=== PATIENT | female | born 1975 | race Caucasian/White ===

== ENCOUNTER 2021-06-07 19:28 | Emergency (ER) | payer SELFPAY ==
[~2021-06-07] VITALS: Ht 167.6 cm; Wt 63.9 kg
[2021-06-07 19:42] VITALS: BP 158/90
[2021-06-07] MEDS ORDERED: ACETAMINOPHEN 500 MG TABLET PO ONE (19:45)
--- NOTE | 2021-06-07 19:52 | PHYS DOC ---
Adult General Chief Complaint Chief Complaint: LOWEREXTREMITY INJURY HPI HPI Patient is a 45-year-old female who presents with right ankle pain after twisting it, 7 out of 10, dull and achy in nature with no radiation. Denies any other injuries. Review of Systems Review of Systems Review of systems otherwise unremarkable except noted in HPI Physical Exam Physical Exam Constitutional: Well developed, well nourished, no acute distress, non-toxic appearance. [] Skin: Warm, dry, no erythema, no rash. [] Back: No tenderness, Extremities: Mild generalized tenderness and swelling around the ankle, with some bruising and swelling around medial malleolus, , neurovascular exam intact Neurologic: Alert and oriented X 3, normal motor function, normal sensory function, no focal deficits noted. [] Psychologic: Affect normal, judgement normal, mood normal. [] EKG EKG [] Radiology/Procedures Radiology/Procedures [] EXAM: 3 views right ankle 2 views right tibia/fibula DATE: 06/07/2021 7:44 PM INDICATION: Reason: fall / Spl. Instructions: / History: . COMPARISON: No Prior FINDINGS: There is a comminuted fracture of the calcaneus with comminution of the posterior body with extension into the posterior tuberosity of the Achilles attachment with suspected extension to the posterior subtalar joint with flattening of the calcaneus. IMPRESSION: Comminuted right calcaneal fracture with suspected posterior subtalar joint extension. Fracture planes can be better assessed by dedicated CT if clinically indicated. Electronically signed by: Cristo Lerner MD (06/07/2021 8:20 PM) [facility] Heart Score C/O Chest Pain: No Risk Factors: Risk Factors: DM, Current or recent (<one month) smoker, HTN, HLP, family history of CAD, obesity. Risk Scores: Risk Factors: DM, Current or recent (<one month) smoker, HTN, HLP, family history of CAD, obesity. Course & Med Decision Making Course & Med Decision Making Patient is a 45-year-old female that presents with right ankle pain Vital signs not concerning. Physical exam noted above. Given pain medicine. Given ice pack. Given Tylenol, ibuprofen and ice. Imaging notable for calcaneal fracture. Placed patient in a short leg splint with stirrup. Given crutches. Discussed pain management at home. Advised to call [facility] orthopedist in the morning to discuss need for follow-up. Gave return precautions to the ED. Patient grateful, verbalized understanding and agreed with plan of discharge. [] Priscila Disclaimer Priscila Disclaimer This electronic medical record was generated, in whole or in part, using a voice recognition dictation system. Departure Departure: Impression: Primary Impression: Ankle sprain Additional Impression: Calcaneal fracture Disposition: HOME / SELF CARE / HOMELESS Condition: GOOD Referrals: PCP,NO (PCP) ZORAIDA CERVANTES Patient Instructions: Calcaneal Fracture, RICE - Routine Care for Injuries Additional Instructions: Thank you for coming into the emergency department tonight and allowing us to take care of you. Please read the attached information carefully to go back over some of the things we discussed. Please begin a Tylenol, ibuprofen and ice regimen as tolerated and discussed. Please call your primary care physician in the morning to update on your ED visit. Please take your pain medicine as prescribed and as needed. Please use your crutches at all times and do not bear any weight on this fracture. Please come back with new or concerning symptoms as we discussed. It is very important that you call [facility] first thing in the morning at [phone] to discuss your broken heel and set up an appointment as soon as possible for reevaluation and further evaluation and treatment. Scripts Hydrocodone Bit/Acetaminophen (HYDROCODONE-APAP 5-325 ) 1 Each Tablet 1 TAB PO Q4HRS PRN for heel fracture for 5 Days, #30 TAB 0 Refills Prov: SATINDER VARGAS MD 06/07/21 Problem Qualifiers SATINDER VARGAS MD Jun 07, 2021 19:52
--- NOTE | 2021-06-07 20:22 | RAD ---
EXAM: 3 views right ankle 2 views right tibia/fibula DATE: 06/07/2021 7:44 PM INDICATION: Reason: fall / Spl. Instructions: / History: . COMPARISON: No Prior FINDINGS: There is a comminuted fracture of the calcaneus with comminution of the posterior body with extension into the posterior tuberosity of the Achilles attachment with suspected extension to the posterior s ubtalar joint with flattening of the calcaneus. IMPRESSION: Comminuted right calcaneal fracture with suspected posterior subtalar joint extension. Fracture plane s can be better assessed by dedicated CT if clinically indicated. Electronically signed by: Cristo Lerner MD (06/07/2021 8:20 PM) MAX
[2021-06-07] MEDS ORDERED: IBUPROFEN 800 MG TABLET. PO ONE (20:48)
[2021-06-07] MEDS ORDERED: MORPHINE SULFATE 4 MG/ML DISP.SYRIN. ONE (20:49)
[2021-06-07] MEDS ORDERED: HYDR-2155 PO (20:50)
[2021-06-07] MEDS ORDERED: IBUPROFEN 600 MG TABLET. PO ONE (21:00)
[2021-06-07] MEDS ORDERED: MORPHINE SULFATE 4 MG/ML DISP.SYRIN. IM ONE (21:00)
[2021-06-07] MEDS ORDERED: oxyCODONE/APAP 5/325 1 TAB TABLET PO ONE (21:00)
== END 2021-06-07 21:54 | disposition home or self-care (01) ==
LOC: ER 19:28
DX: S92.001A Unspecified fracture of right calcaneus, initial encounter for closed fracture (principal); S93.401A Sprain of unspecified ligament of right ankle, initial encounter; X50.1XXA Overexertion from prolonged static or awkward postures, initial encounter; Y93.89 Activity, other specified; Y92.89 Other specified places as the place of occurrence of the external cause; Y99.8 Other external cause status
CPT/HCPCS: 29515; 73590; 73610; 99284; J2270

== ENCOUNTER → 2021-06-29 | Outpatient (CLI) | payer SELFPAY ==
[2021-06-07 19:42] VITALS: BP 158/90
[~2021-06-29] MED LIST: HYDR-2155 PO
--- NOTE | 2021-06-30 10:18 | RAD ---
Examination: 3 views of the right foot HISTORY: Calcaneal fracture COMPARISON: 06/07/2021 Findings/ impression: Cast screws identified fine bony detail. Screws identified transfixing the calcaneal fracture. The al ignment of the tarsometatarsal joints, tarsophalangeal joints, interphalangeal joints grossly appears unremarkable. Electronically signed by: Den Hernandez MD (06/30/2021 10:16 AM) [id number]
== END ==
LOC: RAD 14:06
PROVIDERS: ATTEND Podiatrist
DX: S92.001A Unspecified fracture of right calcaneus, initial encounter for closed fracture (principal); X58.XXXA Exposure to other specified factors, initial encounter; Y93.89 Activity, other specified; Y92.89 Other specified places as the place of occurrence of the external cause; Y99.8 Other external cause status
CPT/HCPCS: 73630

== ENCOUNTER → 2021-08-13 | Outpatient (CLI) | payer SELFPAY ==
--- NOTE | 2021-08-13 15:22 | RAD ---
EXAM: 1. Right foot 3 views. 2. Right calcaneus 2 views. HISTORY: Calcaneal fracture COMPARISON: None. FINDINGS: The comminuted intra-articular fracture of the calcaneus is fixed by 4 screws in near-anato jsutino alignment. The fracture lines are less distinct, consistent with interval healing, but solid call us formation is not yet seen. A lucency along the lateral aspect of the fifth metatarsal head most likely reflects disuse osteopeni a. Other joint spaces and alignment appear maintained. IMPRESSION: 1. Healing fracture of the calcaneus in near-anatomic alignment. 2. 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 Attention on further fol low-up. Electronically signed by: Tom Chatterjee MD (08/13/2021 3:19 PM) [id number]
--- NOTE | 2021-08-13 15:22 | RAD ---
EXAM: 1. Right foot 3 views. 2. Right calcaneus 2 views. HISTORY: Calcaneal fracture COMPARISON: None. FINDINGS: The comminuted intra-articular fracture of the calcaneus is fixed by 4 screws in near-anato justino alignment. The fracture lines are less distinct, consistent with interval healing, but solid call us formation is not yet seen. A lucency along the lateral aspect of the fifth metatarsal head most likely reflects disuse osteopeni a. Other joint spaces and alignment appear maintained. IMPRESSION: 1. Healing fracture of the calcaneus in near-anatomic alignment. 2. 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 Attention on further fol low-up. Electronically signed by: Tom Chatterjee MD (08/13/2021 3:19 PM) [id number]
== END ==
LOC: RAD 10:39
PROVIDERS: ATTEND Podiatrist
DX: S92.061D Displaced intraarticular fracture of right calcaneus, subsequent encounter for fracture with routine healing (principal); X58.XXXD Exposure to other specified factors, subsequent encounter
CPT/HCPCS: 73630; 73650